=== PATIENT | female | born 1985 ===

== ENCOUNTER 2017-01-04 09:10 | Day surgery (SDC) | payer MEDICAID ==
[2016-12-28 11:38] VITALS: BMI 25.0
[2017-01-04 09:49] VITALS: RESP 18
[2017-01-04 09:59] LABS: MEAN CELL VOLUME 67.1 fl (81.0-99.0); MEAN CORPUSCULAR HEMOGLOBIN 20.4 pg (27.0-31.0); MEAN CORPUSCULAR HGB CONC 30.4 g/dL (33.0-37.0); RBC 4.4 Mil/uL (3.80-5.20); RED CELL DISTRIBUTION WIDTH 19.5 % (11.5-14.5); WHITE BLOOD COUNT 3.7 K/uL (4.8-10.8)
--- NOTE | 2017-01-04 10:02 | CP.SDSHP ---
Same Day Surgery H & P - History Proposed Procedure: Excision of L arm keloid and L back lipoma Pre-Op Diagnosis: L arm keloid, L back lipoma /cyst - Allergies Allergies: Allergies No Known Allergies Allergy (Verified 03/15/15 20:58) - Physical Exam General Appearance: NAD Vital Signs: Vital Signs 01/04/17 01/04/17 09:47 09:53 Temperature 98.6 F Pulse Rate 70 70 Respiratory 18 Rate Blood Pressure 114/75 O2 Sat by Pulse 100 Oximetry Mental Status: Alert & Oriented x3 Neuro: WNL Heart: WNL Lungs: WNL GI: WNL - {Optional Preform as Required} Abdomen: WNL Integument: Other (L arm 2x1cm) Ortho: WNL ENT: WNL - Date & Time Date: 01/04/17 Time: 10:03 Short Stay Discharge - Short Stay Discharge Admitting Diagnosis/Reason for Visit: D17.30 Disposition: HOME/ ROUTINE Referrals: Milly Preciado MD [Primary Care Provider] - Charanjit Cuevas MD [Staff Provider] - Follow-up: follow up with Dr. Cuevas in 1-2 weeks. OK to take shower tomorrow. Keep the dermabond (glue) in place until it falls of naturally Take Percocet for pain as needed. 1 pill Every 6 hrs. Instructions: Lipoma (DC)
[2017-01-04] MEDS ORDERED: Lidocaine 2% w Epi 1:100,000 Inj IJ ONE (10:07)
[2017-01-04] MEDS ORDERED: Lidocaine 1% w Epi 1:100,000 Inj ONE (10:08)
[2017-01-04] MEDS ORDERED: Propofol 10 mg/ml Inj (20 ML) ONE (10:59)
[2017-01-04] MEDS ORDERED: Succinylcholine 200 mg/10 ml Inj IV ONE (11:14)
[2017-01-04] MEDS ORDERED: Lidocaine 4% (Laryng-O-Jet) Kit MM ONE (11:14)
[2017-01-04] MEDS ORDERED: Lactated Ringer's 1,000 ML IV ONE ×2 (11:20→12:27)
[2017-01-04] MEDS ORDERED: Dexamethasone 4 mg/1 ml ONE (11:27)
[2017-01-04] MEDS: Bupivacaine HCl 0.5% PF (30 ml) Inj ONE ×2 (11:52→12:16)
[2017-01-04] MEDS ORDERED: Desflurane Inhalation Anesthetic Liq (240 ml) ONE (12:14)
[2017-01-04] MEDS ORDERED: Oxycodone/Acetaminophen 5/325 mg Tab PO PRN (12:34)
--- NOTE | 2017-01-04 12:36 | PCM.SURG1 ---
Surgeon's Initial Post Op Note - Surgeon's Notes Surgeon: Mason Computational Geneticist: Justus PGY2, Ronna PGY1 Type of Anesthesia: General Endo Pre-Operative Diagnosis: Left flank lipoma, Left elbow cyst Operative Findings: Same Post-Operative Diagnosis: Same Operation Performed: Removal of Left flank lipoma and Left elbow cyst Specimen/Specimens Removed: Left flank lipoma and Left elbow cyst Estimated Blood Loss: EBL {In ML}: 1 Blood Products Given: N/A Drains Used: No Drains Post-Op Condition: Good Date of Surgery/Procedure: 01/04/17 Time of Surgery/Procedure: 11:00
[2017-01-04] MEDS ORDERED: Lactated Ringer's 1,000 ML IV SCH (12:37)
[2017-01-04] MEDS ORDERED: HYDROmorphone 0.5 mg/0.5 ml ISec IVP PRN (12:37)
[2017-01-04 17:04] VITALS: O2SAT 100
[2017-01-04] MEDS ORDERED: Trimethobenzamide 200 mg/2 mL Inj IM ONE ×2 (18:57→19:25)
[2017-01-04 19:49] VITALS: BP 110/70; PULSE 69; TEMP 98.1
--- NOTE | 2017-01-04 23:39 | OP ---
PREOPERATIVE DIAGNOSES: Left flank mass and left elbow cyst. POSTOPERATIVE DIAGNOSES: Left flank mass and left elbow cyst. PROCEDURE: Excision of the left flank mass and left elbow cyst. SURGEON: Charanjit Cuevas MD CASTING PLUG ASSEMBLER: Justus. SECOND CASTING PLUG ASSEMBLER: Arjun Dhaliwal. TYPE OF ANESTHESIA: General with endotracheal intubation. IV FLUIDS: Crystalloids. ESTIMATED BLOOD LOSS: 1 mL INTRAOPERATIVE FINDINGS: Left flank mass and left elbow cyst. BRIEF HISTORY: The patient is a very pleasant 31-year-old female who initially presented to my office complaining of left flank mass and small cyst of the left elbow at the site of the prior laceration. All the risks and benefits of the procedure were explained to the patient and the patient will have a full understanding of all the risks and benefits involved. Informed consent was obtained and the patient was taken to the operating room for above-stated procedure. PROCEDURE: The patient was brought into the operating room and placed supine on the operating table. Bilateral Flowtron boots were applied to the patient's lower extremities. After successful induction of anesthesia and successful endotracheal intubation by the anesthesia team, the patient was placed in the right lateral decubitus position and subsequent to that the patient's left flank and the left elbow were prepped with Betadine and draped in a standard surgical fashion. Prior to the beginning of the procedure, the patient received prophylactic Ancef antibiotics. Timeout was called in the room when everyone in the room were in agreement. Out attention was turned to the left flank mass. Using 15 blade scalpel knife approximately 4 cm incision was made around the top of the palpable left flank mass in a transverse fashion and subsequent to that dissection was carried down with electrical cautery until the fatty appearing mass was encountered. The mass was dissected out circumferentially, bluntly with a finger dissection as well as with electrical cautery and subsequent to that was exteriorized into the wound and transected with electrical cautery. At that point in time, hemostasis was checked and appeared to be satisfactory. One deep layer 3-0 Vicryl suture was applied in an interrupted fashion and subsequent to that several deep dermal sutures with 3-0 Vicryl were applied to the dermis and subsequent to that skin was closed with 4-0 Monocryl suture in a running subcuticular fashion. At the end of closure, incision was infiltrated with 0.5% Marcaine anesthetic. The patient's left flank was washed and dried and a Dermabond was applied to the incision site. Then attention was turned to the left elbow cyst. An elliptical incision was made around the cyst with 15 blade scalpel knife. Subsequent to that dissection was carried down with electrocautery until the cyst was completely excised, at the end passed off to the Thendara stent as specimen. At that point in time, several deep dermal sutures were placed with 3-0 Vicryl sutures in a interrupted fashion and subsequent to that the skin was closed with 4-0 Monocryl suture in a running a subcuticular fashion. At the end of the procedure, incision sites were infiltrated with Marcaine anesthetic. The patient's left elbow was washed and dried and Dermabond was applied to the incisions. The patient was successfully extubated by the anesthesia team, transferred to the stretcher and taken to the recovery room in stable condition. At the end of the procedure, all instrument counts, needles, and sponges were correct. Charanjit Cuevas MD
== END 2017-01-04 18:50 | disposition home or self-care (01) ==
LOC: H.OPSURG 09:10
PROVIDERS: ATTEND Surgery
DX: D17.30 Benign lipomatous neoplasm of skin and subcutaneous tissue of unspecified sites (principal)